=== PATIENT | female | born 1950 | race Caucasian/White ===

== ENCOUNTER 2017-06-16 07:36 | Outpatient (CLI) | payer OTHER | END 2017-06-16 07:46 | disposition home or self-care (01) | LOC: LAB 07:36 | DX: R10.84 Generalized abdominal pain (principal); R07.89 Other chest pain; Z13.1 Encounter for screening for diabetes mellitus; K59.09 Other constipation ==

== ENCOUNTER 2017-06-16 08:09 | Outpatient (CLI) | payer OTHER | END 2017-06-16 08:19 | disposition home or self-care (01) | LOC: SONOGRAMA 08:09 | DX: R10.84 Generalized abdominal pain (principal) ==

== ENCOUNTER → 2018-09-30 | Outpatient (CLI) | payer OTHER | END | disposition home or self-care (01) | LOC: NUCLEAR 12:09 | DX: M81.0 Age-related osteoporosis without current pathological fracture (principal) ==

== ENCOUNTER 2019-03-27 08:16 | Outpatient (CLI) | payer OTHER | END 2019-03-27 13:40 | disposition home or self-care (01) | LOC: MAMO-SONO 08:16 | DX: N63.10 Unspecified lump in the right breast, unspecified quadrant (principal); N63.20 Unspecified lump in the left breast, unspecified quadrant; R92.0 Mammographic microcalcification found on diagnostic imaging of breast ==

== ENCOUNTER 2019-11-25 13:36 | Outpatient (CLI) | payer OTHER | END 2019-11-25 13:52 | disposition home or self-care (01) | LOC: MAMO-SONO 13:36 | PROVIDERS: ATTEND Internal Medicine Endocrinology, Diabetes & Metabolism | DX: Z12.31 Encounter for screening mammogram for malignant neoplasm of breast (principal); N64.59 Other signs and symptoms in breast ==

== ENCOUNTER 2020-11-29 08:00 | Outpatient (CLI) | payer OTHER | END 2020-11-29 08:11 | disposition home or self-care (01) | LOC: MAMO-SONO 08:00 | PROVIDERS: ATTEND Internal Medicine Endocrinology, Diabetes & Metabolism | DX: R92.0 Mammographic microcalcification found on diagnostic imaging of breast (principal); Z12.31 Encounter for screening mammogram for malignant neoplasm of breast ==